=== PATIENT | male | born 1980 | race American Indian/Alaskan Native ===

== ENCOUNTER 2016-10-17 14:16 | Emergency (ER) | payer OTHER ==
[2016-10-17 15:05] VITALS: BP 151/95
--- NOTE | 2016-10-17 18:27 | Emergency Department Report ---
ED Headache HPI - General Chief Complaint: Headache Stated Complaint: DIZZY SPELLS/HEADACHES/SOB Time Seen by Provider: 10/17/16 18:21 - History of Present Illness Allergies/Adverse Reactions: Allergies No Known Allergies Allergy (Unverified 10/17/16 15:05) Home Medications: Ambulatory Orders ALBUTEROL Inhaler [ProAir HFA Inhaler] 2 puff IH QID PRN #1 inhalation 10/17/16 Amoxicillin [Amoxicillin TAB] 875 mg PO BID #24 tablet 10/17/16 Prednisone [predniSONE] 50 mg PO QDAY #5 tab 10/17/16 Promethazine [Phenergan TAB] 25 mg PO Q6HR PRN #25 tab 10/17/16 ED Review of Systems ROS: Stated complaint: DIZZY SPELLS/HEADACHES/SOB Other details as noted in HPI ED Past Medical Hx - Past Medical History Previous Medical History?: No - Surgical History Past Surgical History?: No - Social History Smoking Status: Current Every Day Smoker Substance Use Type: Alcohol - Medications Home Medications: Home Medications Medication Instructions Recorded Confirmed Last Taken Type ALBUTEROL Inhaler [ProAir HFA 2 puff IH QID PRN #1 inhalation 10/17/16 Unknown Rx Inhaler] Amoxicillin [Amoxicillin TAB] 875 mg PO BID #24 tablet 10/17/16 Unknown Rx Prednisone [predniSONE] 50 mg PO QDAY #5 tab 10/17/16 Unknown Rx Promethazine [Phenergan TAB] 25 mg PO Q6HR PRN #25 tab 10/17/16 Unknown Rx ED Physical Exam - General Limitations: No Limitations ED Course Vital Signs 10/17/16 15:00 Temperature 99.0 F Pulse Rate 117 H Respiratory 20 Rate Blood Pressure 151/95 O2 Sat by Pulse 98 Oximetry Critical care attestation.: If time is entered above; I have spent that time in minutes in the direct care of this critically ill patient, excluding procedure time. ED Disposition Clinical Impression: Sinusitis Disposition: DISCHARGED TO HOME OR SELFCARE Is pt being admited?: No Condition: Stable Instructions: Sinusitis (ED) Prescriptions: ALBUTEROL Inhaler [ProAir HFA Inhaler] 2 puff IH QID PRN #1 inhalation PRN Reason: Shortness Of Breath Amoxicillin [Amoxicillin TAB] 875 mg PO BID #24 tablet Prednisone [predniSONE] 50 mg PO QDAY #5 tab Promethazine [Phenergan TAB] 25 mg PO Q6HR PRN #25 tab PRN Reason: Nausea Referrals: PRIMARY CARE, [Primary Care Provider] - 3-5 Days Forms: Work/School Release Form(ED)
--- NOTE | 2016-10-17 18:33 | Emergency Department Report ---
- General Chief Complaint: Headache Stated Complaint: DIZZY SPELLS/HEADACHES/SOB Time Seen by Provider: 10/17/16 18:21 Source: patient Mode of arrival: Ambulatory Limitations: No Limitations - History of Present Illness Initial Comments: Patient states that for the past week he has had progressing sinus congestion L inability to breathe through his nose increasing pressure and now is developing a headache and sore throat and chills. Patient believes he has seasonal allergies and also been causing him to cough and have phlegm production and increasing sinus pressure. Patient denies photophobia, neck pain, chest pain, shortness of breath or difficulty breathing also denies wheezing. MD Complaint: fever, cough, sore throat, nasal congestion, sinus pain -: Gradual, days(s) Severity scale (0 -10): 4 Quality: aching Consistency: constant Associated Symptoms: chills, myalgias, headache, nasal congestion, sore throat, cough, shortness of breath (date he cannot breathe through his nose), hoarseness , ear pain. denies: stiff neck, chest pain, rash, confusion, right sweats, weight loss, epistaxis - Related Data Previous Rx's Medication Instructions Recorded Last Taken Type ALBUTEROL Inhaler [ProAir HFA 2 puff IH QID PRN #1 inhalation 10/17/16 Unknown Rx Inhaler] Amoxicillin [Amoxicillin TAB] 875 mg PO BID #24 tablet 10/17/16 Unknown Rx Prednisone [predniSONE] 50 mg PO QDAY #5 tab 10/17/16 Unknown Rx Promethazine [Phenergan TAB] 25 mg PO Q6HR PRN #25 tab 10/17/16 Unknown Rx Allergies Allergy/AdvReac Type Severity Reaction Status Date / Time No Known Allergies Allergy Unverified 10/17/16 15:05 ED Review of Systems ROS: Stated complaint: DIZZY SPELLS/HEADACHES/SOB Other details as noted in HPI Constitutional: chills Eyes: denies: eye pain, eye discharge ENT: ear pain, throat pain, congestion, other (sinus pressure and pain). denies : dental pain, hearing loss, epistaxis Respiratory: cough. denies: shortness of breath, SOB with exertion, SOB at rest Cardiovascular: denies: chest pain, palpitations, dyspnea on exertion Gastrointestinal: denies: abdominal pain, nausea, vomiting, diarrhea Musculoskeletal: myalgia Neurological: headache. denies: weakness, numbness, paresthesias ED Past Medical Hx - Past Medical History Previous Medical History?: No - Surgical History Past Surgical History?: No - Social History Smoking Status: Current Every Day Smoker Substance Use Type: Alcohol - Medications Home Medications: Home Medications Medication Instructions Recorded Confirmed Last Taken Type ALBUTEROL Inhaler [ProAir HFA 2 puff IH QID PRN #1 inhalation 10/17/16 Unknown Rx Inhaler] Amoxicillin [Amoxicillin TAB] 875 mg PO BID #24 tablet 10/17/16 Unknown Rx Prednisone [predniSONE] 50 mg PO QDAY #5 tab 10/17/16 Unknown Rx Promethazine [Phenergan TAB] 25 mg PO Q6HR PRN #25 tab 10/17/16 Unknown Rx ED Physical Exam - General Limitations: No Limitations General appearance: alert, in no apparent distress - Head Head exam: Present: atraumatic - Eye Eye exam: Present: normal appearance, PERRL, EOMI - ENT ENT exam: Present: mucous membranes moist, other (bilateral maxillary and frontal sinus tenderness to percussion) - Expanded ENT Exam Expanded TM/Canal exam: Erythema: Right TM, Left TM (canal without tenderness) Mouth exam: Absent: trismus Throat exam: Positive: tonsillar erythema. Negative: tonsillar exudate, R peritonsillar mass, L peritonsillar mass - Neck Neck exam: Present: normal inspection, full ROM. Absent: tenderness, meningismus, lymphadenopathy - Respiratory Respiratory exam: Present: normal lung sounds bilaterally. Absent: respiratory distress, wheezes, rales, rhonchi, stridor - Cardiovascular Cardiovascular Exam: Present: regular rate (on physical exam heart rate 95 bpm) - GI/Abdominal GI/Abdominal exam: Present: soft. Absent: distended, tenderness, guarding, rebound - Back Exam Back exam: Present: normal inspection. Absent: CVA tenderness (R), CVA tenderness (L) - Neurological Exam Neurological exam: Present: alert, oriented X3, normal gait. Absent: altered - Skin Skin exam: Present: warm, dry, intact ED Course Vital Signs 10/17/16 15:00 Temperature 99.0 F Pulse Rate 117 H Respiratory 20 Rate Blood Pressure 151/95 O2 Sat by Pulse 98 Oximetry Critical care attestation.: If time is entered above; I have spent that time in minutes in the direct care of this critically ill patient, excluding procedure time. ED Disposition Clinical Impression: Sinusitis Disposition: DISCHARGED TO HOME OR SELFCARE Is pt being admited?: No Condition: Stable Instructions: Sinusitis (ED) Prescriptions: ALBUTEROL Inhaler [ProAir HFA Inhaler] 2 puff IH QID PRN #1 inhalation PRN Reason: Shortness Of Breath Amoxicillin [Amoxicillin TAB] 875 mg PO BID #24 tablet Prednisone [predniSONE] 50 mg PO QDAY #5 tab Promethazine [Phenergan TAB] 25 mg PO Q6HR PRN #25 tab PRN Reason: Nausea Referrals: PRIMARY CARE, [Primary Care Provider] - 3-5 Days Forms: Work/School Release Form(ED)
== END 2016-10-17 18:49 | disposition home or self-care (01) ==
LOC: ED 14:16
DX: J32.9 Chronic sinusitis, unspecified (principal); F17.200 Nicotine dependence, unspecified, uncomplicated
CPT/HCPCS: 99282